=== PATIENT | male | born 1985 | race American Indian/Alaskan Native ===

== ENCOUNTER 2019-09-13 10:49 | Emergency (ER) | payer SELFPAY ==
--- NOTE | 2019-09-13 12:09 | Event Note ---
ED Screening Note ED Screening Note: states he has been trying to stop drinking alcohol states he drank today states he began having pulling in the left chest pain no n/v/d no fever no recent illness states he has some discomfort with breathing and hurts with movement worse with coughing no known PMHx has not seen a doctor in 8-9 years no allergies to meds +smoker +marijuana no other drug use This initial assessment/diagnostic orders/clinical plan/treatment(s) is/are subject to change based on patients health status, clinical progression and re- assessment by fellow clinical providers in the ED. Further treatment and workup at subsequent clinical providers discretion. Patient/guardian urged not to elope from the ED as their condition may be serious if not clinically assessed and managed. Initial orders include: CP protocol
--- NOTE | 2019-09-13 12:44 | XRay Report ---
CHEST 2 VIEWS INDICATION / CLINICAL INFORMATION: Chest pain. COMPARISON: None available. FINDINGS: SUPPORT DEVICES: None. HEART / MEDIASTINUM: No significant abnormality. LUNGS / PLEURA: No significant pulmonary or pleural abnormality. No pneumothorax. ADDITIONAL FINDINGS: No significant additional findings. IMPRESSION: 1. No acute abnormality of the chest. Signer Name: Lamont Galvez MD Signed: 09/13/2019 12:40 PM Workstation Name: [id number]
[2019-09-13 13:14] LABS: Alanine Aminotransferase 21 units/L (7-56); BUN/Creatinine Ratio 13; Blood Urea Nitrogen 10 mg/dL (9-20); Calcium 9.9 mg/dL (8.4-10.2); Hemolysis Index 4
[2019-09-13 13:32] LABS: Basophils # (Auto) 0.1 K/mm3 (0.0-0.1); Basophils % (Auto) 0.9 % (0.0-1.8); Eosinophils # (Auto) 0.1 K/mm3 (0.0-0.4); Hemoglobin 16.6 gm/dl (11.8-15.2); Lymphocytes # (Auto) 2.7 K/mm3 (1.2-5.4); Lymphocytes % (Auto) 38.2 % (13.4-35.0); Mean Corpuscular HGB Conc 33 % (32-34); Mean Corpuscular Volume 88 fl (84-94); Monocytes # (Auto) 0.6 K/mm3 (0.0-0.8); Platelet Count 282 K/mm3 (140-440); Red Blood Count 5.71 M/mm3 (3.65-5.03); Red Cell Distribution Width 14.5 % (13.2-15.2)
[2019-09-13 13:45] LABS: Partial Thromboplastin Time 34.9 Sec. (24.2-36.6)
[2019-09-13 13:50] LABS: INR 0.96 (0.87-1.13)
[2019-09-13] MEDS ORDERED: cloNIDine 0.1 MG TAB PO ONE (14:24)
--- NOTE | 2019-09-13 14:28 | Emergency Department Report ---
ED Chest Pain HPI - General Chief Complaint: Chest Pain Stated Complaint: CHEST PAIN, SOB Time Seen by Provider: 09/13/19 12:06 Source: patient Mode of arrival: Ambulatory Limitations: No Limitations - History of Present Illness Initial Comments: Patient is 33 years old male with history of hypertension, noncompliant with his medication. Patient also history of bipolar disorder not on any medication. Patient presented to the ER complaining of left-sided chest pain started this afternoon. Patient describes his pain as aching with no radiation. Patient denies any shortness of breath, fever or cough. Patient stated that he used to drink daily but since the beginning of the new year he stop and he is weaning himself down. Patient denies any visual hallucination or auditory hallucination. He also denies any suicidal or homicidal ideation. MD Complaint: chest pain -: This afternoon Onset: during rest Pain Location: left chest Severity: moderate Severity scale (0 -10): 7 Quality: aching Consistency: intermittent - Related Data Allergies Allergy/AdvReac Type Severity Reaction Status Date / Time No Known Allergies Allergy Unverified 09/13/19 10:53 Heart Score - HEART Score History: Moderately suspicious EKG: Non-specific Age: < 45 Risk factors: 1-2 risk factors Troponin: < normal limit HEART Score: 3 - Critical Actions Critical Actions: 0-3 pts:0.9-1.7%risk of adverse cardiac event.Candidate for discharge ED Review of Systems ROS: Stated complaint: CHEST PAIN, SOB Other details as noted in HPI Comment: All other systems reviewed and negative Constitutional: denies: chills, fever Respiratory: denies: cough Cardiovascular: chest pain Gastrointestinal: denies: abdominal pain, nausea Neurological: denies: headache, weakness, numbness, paresthesias, confusion, a bnormal gait Psychiatric: denies: depression, auditory hallucinations, visual hallucinations, homicidal thoughts, suicidal thoughts ED Past Medical Hx - Past Medical History Previous Medical History?: No - Surgical History Past Surgical History?: No - Social History Smoking Status: Current Every Day Smoker Substance Use Type: Marijuana ED Physical Exam - General Limitations: No Limitations General appearance: alert, in no apparent distress - Head Head exam: Present: atraumatic, normocephalic, normal inspection - Eye Eye exam: Present: normal appearance, PERRL - ENT ENT exam: Present: normal exam, normal orophraynx, mucous membranes moist - Neck Neck exam: Present: normal inspection, full ROM. Absent: tenderness, meningismus, lymphadenopathy, thyromegaly - Respiratory Respiratory exam: Present: normal lung sounds bilaterally - Cardiovascular Cardiovascular Exam: Present: regular rate, normal rhythm, normal heart sounds - GI/Abdominal GI/Abdominal exam: Present: soft, normal bowel sounds. Absent: distended, tenderness, guarding, rebound, rigid, organomegaly, mass, bruit, pulsatile mass, hernia - Extremities Exam Extremities exam: Present: normal inspection, full ROM, normal capillary refill - Back Exam Back exam: Present: normal inspection, full ROM. Absent: CVA tenderness (R), CVA tenderness (L) - Neurological Exam Neurological exam: Present: alert, oriented X3, CN II-XII intact, normal gait, reflexes normal - Psychiatric Psychiatric exam: Present: normal mood. Absent: agitated, anxious, flat affect, manic, homicidal ideation, suicidal ideation - Skin Skin exam: Present: warm, intact, normal color ED Course Vital Signs 09/13/19 09/13/19 09/13/19 12:06 14:16 14:19 Temperature 98.1 F Pulse Rate 77 68 71 Respiratory 18 11 L 17 Rate Blood Pressure 166/110 Blood Pressure 181/122 [Left] O2 Sat by Pulse 100 100 Oximetry 09/13/19 09/13/19 09/13/19 14:30 14:45 15:00 Temperature Pulse Rate 65 67 64 Respiratory 14 8 L 9 L Rate Blood Pressure 181/122 173/97 173/97 Blood Pressure [Left] O2 Sat by Pulse 100 Oximetry 09/13/19 09/13/19 09/13/19 15:15 15:30 15:45 Temperature Pulse Rate 66 Respiratory 30 H 27 H 22 Rate Blood Pressure 174/105 154/98 148/91 Blood Pressure [Left] O2 Sat by Pulse 98 99 96 Oximetry ED Medical Decision Making - Lab Data Result diagrams: 09/13/19 12:27 09/13/19 12:27 - EKG Data -: EKG Interpreted by Me EKG shows normal: sinus rhythm Rate: normal - EKG Data Interpretation: no acute changes - Radiology Data Radiology results: report reviewed - Medical Decision Making Patient is 33 years old male with history of hypertension, noncompliant with his medication. Patient also history of bipolar disorder not on any medication. Patient presented to the ER complaining of left-sided chest pain started this afternoon. Patient describes his pain as aching with no radiation. Patient denies any shortness of breath, fever or cough. Patient stated that he used to drink daily but since the beginning of the new year he stop and he is weaning himself down. Patient denies any visual hallucination or auditory hallucination. He also denies any suicidal or homicidal ideation EKG showed no ST elevation or depression. Chest x-ray is unremarkable. Labs reviewed and is negative including 2 sets of troponin. Patient found to have a high blood pressure patient received clonidine 0.2 mg his current blood pressure is 148/92. Patient is chest pain-free. Patient strongly advised to follow-up with his primary care physician in the next 2 to 3 days and to return to the ER if he develop any new symptoms. Critical care attestation.: If time is entered above; I have spent that time in minutes in the direct care of this critically ill patient, excluding procedure time. ED Disposition Clinical Impression: Chest pain, Malignant hypertension Disposition: TO HOME OR SELFCARE Is pt being admited?: No Condition: Stable Instructions: Chest Pain (ED), Hypertension (ED) Referrals: [facility] [Provider Group] - 3-5 Days
[2019-09-13 15:56] VITALS: BP 148/91
== END 2019-09-13 16:50 | disposition home or self-care (01) ==
LOC: ED 10:49
DX: I10 Essential (primary) hypertension (principal); F17.200 Nicotine dependence, unspecified, uncomplicated; F12.90 Cannabis use, unspecified, uncomplicated
CPT/HCPCS: 36415; 71046; 80053; 80320; 83690; 84484; 85025; 85610; 85730; 93005; 93010; G0480

== ENCOUNTER 2021-04-20 07:49 | Emergency (ER) | payer SELFPAY ==
[2021-04-20 08:29] LABS: Basophils # (Auto) 0.1 K/mm3 (0.0-0.1); Basophils % (Auto) 0.8 % (0.0-1.8); Eosinophils # (Auto) 0.1 K/mm3 (0.0-0.4); Hematocrit 47.1 % (35.5-45.6); Hemoglobin 15.7 gm/dl (11.8-15.2); Lymphocytes # (Auto) 2.4 K/mm3 (1.2-5.4); Lymphocytes % (Auto) 33.2 % (13.4-35.0); Mean Corpuscular HGB Conc 33 % (32-34); Mean Corpuscular Volume 88 fl (84-94); Monocytes # (Auto) 0.6 K/mm3 (0.0-0.8); Monocytes % (Auto) 7.9 % (0.0-7.3); Platelet Count 308 K/mm3 (140-440); Red Blood Count 5.37 M/mm3 (3.65-5.03); Red Cell Distribution Width 16.3 % (13.2-15.2)
--- NOTE | 2021-04-20 08:37 | XRay Report ---
CHEST 2 VIEWS INDICATION / CLINICAL INFORMATION: Chest pain. COMPARISON: 09/13/2019 FINDINGS: SUPPORT DEVICES: None. HEART / MEDIASTINUM: No significant abnormality. LUNGS / PLEURA: No significant pulmonary or pleural abnormality. No pneumothorax. ADDITIONAL FINDINGS: No significant additional findings. IMPRESSION: 1. No acute findings. Signer Name: Nicolas Mckeon MD Signed: 04/20/2021 8:32 AM Workstation Name: [id number]
[2021-04-20 08:51] LABS: Alanine Aminotransferase 72 units/L (7-56); Albumin 4.6 g/dL (3.9-5); BUN/Creatinine Ratio 16; Blood Urea Nitrogen 13 mg/dL (9-20); Calcium 9.4 mg/dL (8.4-10.2); Hemolysis Index 17
--- NOTE | 2021-04-20 09:21 | Emergency Department Report ---
ED Chest Pain HPI - General Chief Complaint: Chest Pain Stated Complaint: CHEST PAINS PUI?: No Time Seen by Provider: 04/20/21 07:56 Source: patient Mode of arrival: Ambulatory Limitations: No Limitations - History of Present Illness Initial Comments: The patient was evaluated in the emergency department for symptoms described in the history of present illness. He/she was evaluated in the context of the global COVID-19 pandemic, which necessitated consideration that the patient might be at risk for infection with the virus that causes COVID-19. Institutional protocols and algorithms that pertain to the evaluation of patients at risk for COVID-19 are in a state of rapid change based on information released by regulatory bodies including the CDC and federal and state organizations. These policies and algorithms were followed during the patient's care in the emergency department. Please note that these policies, procedures and recommendations changed on a rapid basis. 35-year-old -Turk[place] male presents to the emergency room for chest pain. Patient states that he was seen by his primary care provider and thought that told him to follow-up in the emergency room. Patient comes in with paperwork shows a referral to [facility]. Patient states that he has been dealing with chest pain off and on since he has been off his meds in August. Patient states has been off his meds since August secondary to financial strain. Patient states he has constant has chest pain usually a 2 out of 10 but it will get worse at times when he is exhibiting a lot of exertion. Patient states at that time feels like his heart is being squeezed he has pressure and sharp and will radiate to the right side of his chest and to his right elbow. He states that then it would go back up to the left side. Patient does endorse that he is decrease his alcohol use and his cigarette use. Patient states he has a strong family history of hypertension and has had 5 family members of heart disease in the last 3 years. MD Complaint: chest pain Onset/Timin -: month(s) Onset: during exertion Pain Location: left chest Pain Radiation: RUE Severity: moderate Quality: tightness, pressure, squeezing Consistency: intermittent Improves With: nothing Worsens With: exertion re: diaphoresis, dyspnea Treatments Prior to Arrival: none - Related Data On Oral Contraceptives: No Previous Rx's Medication Instructions Recorded Last Taken Type amLODIPine [Norvasc] 5 mg PO DAILY #30 tab 09/13/19 Unknown Rx hydroCHLOROthiazide [HCTZ] 25 mg PO QDAY #30 tablet 09/13/19 Unknown Rx Allergies Allergy/AdvReac Type Severity Reaction Status Date / Time No Known Allergies Allergy Unverified 09/13/19 10:53 Heart Score - HEART Score History: Slightly suspicious EKG: Non-specific Age: < 45 Risk factors: 1-2 risk factors Troponin: < normal limit HEART Score: 2 ED Review of Systems ROS: Stated complaint: CHEST PAINS Other details as noted in HPI ED Past Medical Hx - Past Medical History Previous Medical History?: Yes Hx Hypertension: Yes - Surgical History Past Surgical History?: No - Social History Smoking Status: Current Every Day Smoker Substance Use Type: Marijuana - Medications Home Medications: Home Medications Medication Instructions Recorded Confirmed Last Taken Type amLODIPine [Norvasc] 5 mg PO DAILY #30 tab 09/13/19 Unknown Rx hydroCHLOROthiazide [HCTZ] 25 mg PO QDAY #30 tablet 09/13/19 Unknown Rx ED Physical Exam - General Limitations: No Limitations General appearance: alert - Head Head exam: Present: atraumatic, normocephalic - Eye Eye exam: Present: normal appearance - ENT ENT exam: Present: mucous membranes moist - Neck Neck exam: Present: normal inspection, full ROM - Respiratory Respiratory exam: Present: normal lung sounds bilaterally. Absent: chest wall tenderness, accessory muscle use - Cardiovascular Cardiovascular Exam: Present: regular rate - GI/Abdominal GI/Abdominal exam: Present: soft. Absent: distended, tenderness, guarding - Extremities Exam Extremities exam: Present: normal inspection, full ROM. Absent: pedal edema - Back Exam Back exam: Present: normal inspection, full ROM - Neurological Exam Neurological exam: Present: alert, oriented X3, normal gait - Psychiatric Psychiatric exam: Present: normal affect, normal mood - Skin Skin exam: Present: warm, dry, intact, normal color. Absent: rash ED Course Vital Signs 04/20/21 07:57 Temperature 98 F Pulse Rate 81 Respiratory 16 Rate Blood Pressure 170/106 [Left] O2 Sat by Pulse 97 Oximetry JOE score - Joe Score Age > 65: (0) No Aspirin use within the Past 7 Days: (0) No 3 or more CAD Risk Factors: (1) Yes 2 or more Angina events in past 24 hrs: (0) No Known CAD with more than 50% Stenosis: (0) No Elevated Cardiac Markers: (0) No ST Deviation Greater than 0.5mm: (0) No JOE Score: 1 ED Medical Decision Making - Lab Data Laboratory Tests 04/20/21 04/20/21 08:18 08:18 WBC 7.2 RBC 5.37 H Hgb 15.7 H Hct 47.1 H MCV 88 MCH 29 MCHC 33 RDW 16.3 H Plt Count 308 Lymph % (Auto) 33.2 [place] % (Auto) 7.9 H Eos % (Auto) 2.0 Baso % (Auto) 0.8 Lymph # (Auto) 2.4 [place] # (Auto) 0.6 Eos # (Auto) 0.1 Baso # (Auto) 0.1 Seg Neutrophils % 56.1 Seg Neutrophils # 4.0 Sodium 136 L Potassium 3.8 Chloride 101.8 Carbon Dioxide 24 Anion Gap 14 BUN 13 Creatinine 0.8 Estimated GFR > 60 BUN/Creatinine Ratio 16 Glucose 142 H Calcium 9.4 Total Bilirubin 0.40 AST 45 H ALT 72 H Alkaline Phosphatase 100 Troponin T < 0.010 Total Protein 8.2 Albumin 4.6 Albumin/Globulin Ratio 1.3 Lipase 43 - Radiology Data Radiology results: report reviewed [facility] [address] [place] [address] XRay Report Signed Patient: TAWANNA HOWE MR#: [id number] : 1985 Acct:[id number] Age/Sex: 35 / M ADM Date: 04/20/21 Loc: ED Attending Dr: Ordering Physician: JIE GOLDSTEIN Date of Service: 04/20/21 Procedure(s): XR chest routine 2V Accession Number(s): [id number] cc: JIE GOLDSTEIN Fluoro Time In Minutes: CHEST 2 VIEWS INDICATION / CLINICAL INFORMATION: Chest pain. COMPARISON: 09/13/2019 FINDINGS: SUPPORT DEVICES: None. HEART / MEDIASTINUM: No significant abnormality. LUNGS / PLEURA: No significant pulmonary or pleural abnormality. No pneumothorax. ADDITIONAL FINDINGS: No significant additional findings. IMPRESSION: 1. No acute findings. Signer Name: Nicolas Mckeon MD Signed: 04/20/2021 8:32 AM Workstation Name: [id number] Transcribed By: HOANG Dictated By: Nicolas Mckeon MD Electronically Authenticated By: Nicolas Mckeon MD Signed Date/Time: 04/20/21831 DD/ 1 TD/TT: Print Cancel - Medical Decision Making 35-year-old -Turkmen male presents to the emergency room for chest pain. Patient states that he was seen by his primary care provider and thought that told him to follow-up in the emergency room. Patient comes in with paperwork shows a referral to [facility]. Patient states that he has been dealing with chest pain off and on since he has been off his meds in August. Patient states has been off his meds since August secondary to financial strain. Patient states he has constant has chest pain usually a 2 out of 10 but it will get worse at times when he is exhibiting a lot of exertion. Patient states at that time feels like his heart is being squeezed he has pressure and sharp and will radiate to the right side of his chest and to his right elbow. He states that then it would go back up to the left side. Patient does endorse that he is decrease his alcohol use and his cigarette use. Patient states he has a strong family history of hypertension and has had 5 family members of heart disease in the last 3 years. PERC Scoring 0 criteria No need for further workup, as <2% chance of PE. If no criteria are positive and clinicians pre-test probability is <15%, PERC Rule criteria are satisfied. CXR, ekg, CBC CMP troponin lipase The patient is resting comfortably and feeling better, is alert and in no distress. The repeat examination is unremarkable and benign. The electrocardiogram shows no signs of acute ischemia and the history, exam, diagnostic testing and current condition do not suggest that this patient is having acute myocardial infarction, significant arrhythmia, unstable angina, esophageal perforation, pulmonary embolism, aortic dissection, pneumothorax, severe pneumonia, sepsis or other significant pathology that would warrant further testing, continued ED treatment, admission, or cardiology or other specialist consultation at this point. The vital signs have been stable. The patient's condition is stable and appropriate for discharge. The patient will pursue further outpatient evaluation with primary care physician, other designated physician or boilermaker pipe fitter. The patient and/or caregiver have expressed a clear in thorough understanding and agrees to the follow-up as instructed. Patient will be referred to [facility] for further evaluation. Critical care attestation.: If time is entered above; I have spent that time in minutes in the direct care of this critically ill patient, excluding procedure time. ED Disposition Clinical Impression: Nonspecific chest pain Disposition: 01 HOME / SELF CARE / HOMELESS Is pt being admited?: No Does the pt Need Aspirin: No Condition: Stable Instructions: Nonspecific Chest Pain, Adult, [id number] Additional Instructions: It is very important you follow-up with the boilermaker pipe fitter I have listed their information below for your convenience. Is important you take all your medications as prescribed by your primary care provider. Follow a DASH diet low-sodium diet increase your exercise and increase your fluid intake avoid alcohol drinks. Return back to the emergency room if you have any excruciating chest pain shortness of breath. Referrals: [facility] [Primary Care Provider] - 3-5 Days [facility] [Provider Group] - 3-5 Days Forms: Work/School Release Form(ED) Time of Disposition: 09:30
[2021-04-20 10:22] VITALS: BP 160/97
--- NOTE | 2021-04-23 14:45 | Electrocardiograph Report ---
[facility] Test Date: 2021-04-20 Test Time: 08:07:52 Pat Name: TAWANNA HOEW Department: Room: Gender: M [employer]: KYLE : 1985 Requested By: OLIVIER BROWN Order Number: [id number] Reading MD: Anival Marquis Measurements Intervals [place] Rate: 74 P: 38 AR: 192 QRS: -30 QRSD: 106 T: 20 QT: 404 QTc: 448 Interpretive Statements Sinus rhythm LEFT AXIS DEVIATION No previous ECG available for comparison Electronically Signed On 04-23-2021 14:45:11 EDT by Anival Marquis
== END 2021-04-20 10:20 | disposition home or self-care (01) ==
LOC: ED 07:49
DX: R07.89 Other chest pain (principal)
CPT/HCPCS: 36415; 71046; 80053; 83690; 84484; 85025; 93005; 99283; 99284